=== PATIENT | female | born 1995 | race Caucasian/White ===

== ENCOUNTER 2019-02-22 21:22 | Emergency (ER) | payer OTHER ==
[2019-02-22] MEDS: HYDROCODONE/APAP (5/325) TAB PO (22:57)
[2019-02-22] MEDS ORDERED: ACETAMINOPHEN 325 MG TAB PO (23:00)
== END 2019-02-23 02:46 | disposition home or self-care (01) ==
LOC: FTE 02-23 02:46
DX: S09.90XA Unspecified injury of head, initial encounter (principal); S79.912A Unspecified injury of left hip, initial encounter; R51 Headache; W01.0XXA Fall on same level from slipping, tripping and stumbling without subsequent striking against object, initial encounter; Y92.9 Unspecified place or not applicable
CPT/HCPCS: 70450; 73502; 73510; 81025; 99284-25